=== PATIENT | female | born 1970 | race Caucasian/White ===

== ENCOUNTER 2016-11-05 11:21 | Inpatient (IN) | payer OTHER ==
[2016-11-05 12:13] VITALS: BMI 26.6
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
[2016-11-05] MEDS ORDERED: ACETAMINOPHEN 325 MG TABLET (FP) PO PRN (13:56)
[2016-11-05] MEDS ORDERED: P-EPHED 60MG/TRIPROLIDI 2.5MG TABLET PO PRN (13:56)
[2016-11-05] MEDS ORDERED: LOPERAMIDE HCL 2 MG CAPSULE PO PRN (13:56)
[2016-11-05] MEDS ORDERED: MAGNESIUM CITRATE 300 ML BOTTLE PO PRN (13:56)
[2016-11-05] MEDS ORDERED: MAGNESIUM HYDROX 2400MG/30ML ORAL SUSPENSION 30 ML CUP PO PRN (13:56)
[2016-11-05] MEDS ORDERED: IBUPROFEN 400 MG TABLET (FP) PO PRN (13:56)
[2016-11-05] MEDS ORDERED: MAG HYDROX/AL HYDROX/SIMETH 30 ML UNIT-DOSE CUP PO PRN (13:56)
[2016-11-05] MEDS ORDERED: chlordiazePOXIDE HCL 25 MG CAPSULE PO PRN (13:56)
[2016-11-05] MEDS ORDERED: guaiFENesin/D-METHORPHAN HB 10 ML UNIT-DOSE CUPS PO PRN (13:56)
[2016-11-05] MEDS ORDERED: MENTHOL/PHENOL 1 EACH UD MM PRN (13:56)
[2016-11-05] MEDS ORDERED: hydrOXYzine PAMOATE 50 MG CAPSULE (FP) PO PRN (13:56)
[2016-11-05] MEDS ORDERED: ALBUTEROL SO4 6.7 GM HFA INHALER IH PRN (14:05)
[2016-11-05] MEDS ORDERED: chlordiazePOXIDE HCL 25 MG CAPSULE PO ONE (14:28)
[2016-11-05 16:33] LABS: URINE APPEARANCE SLCLOUDY; URINE BILIRUBIN NEGATIVE (NEGATIVE); URINE BLOOD NEGATIVE (NEGATIVE); URINE COLOR YELLOW; URINE GLUCOSE (UA) NEGATIVE (NEGATIVE); URINE KETONE NEGATIVE (NEGATIVE); URINE NITRITE NEGATIVE (NEGATIVE); URINE PROTEIN NEGATIVE (NEGATIVE); URINE UROBILINOGEN 2.0 E.U/dl E.U./dl (0.2-1.0)
[2016-11-05 16:37] LABS: URINE LEUK ESTERASE TRACE (NEGATIVE)
[2016-11-05 16:40] LABS: URINE BACTERIA RARE /hpf (NONE SEEN); URINE MUCUS RARE; URINE RBC 2 /hpf (0-3); URINE WBC 7 /hpf (3-5)
[2016-11-05] MEDS: chlordiazePOXIDE HCL 25 MG CAPSULE PO SCH ×2 (17:34→22:21)
[2016-11-05] MEDS: ONDANSETRON *ODT* 4 MG TABLET SL PRN ×2 (19:36→22:21)
[2016-11-05] MEDS: THIAMINE HCL 100 MG TABLET (FP) PO SCH (22:21)
[2016-11-05] MEDS: diphenhydrAMINE HCL 50 MG CAPSULE PO PRN (22:21)
[2016-11-06] MEDS: chlordiazePOXIDE HCL 25 MG CAPSULE PO SCH ×4 (06:05→22:25)
[2016-11-06 09:17] LABS: HIV 1 & 2 AB NEGATIVE; HIV 1 AGp24 NEGATIVE
[2016-11-06 10:09] LABS: MCH 31.6 pg (25.7-33.7); MCHC 33.4 g/dl (32.0-36.0); MEAN CELL VOLUME 94.5 fl (80-96); MEAN PLT VOLUME 9.6 fl (7.5-11.1); PLATELET COUNT 283 K/MM3 (134-434); WHITE BLOOD COUNT 9.2 K/mm3 (4.0-10.0)
[2016-11-06 10:28] LABS: ALBUMIN 3.4 g/dl (3.4-5.0); ALK PHOS 90 U/L (45-117); ANION GAP 8 (8-16); BILIRUBIN,TOTAL 0.4 mg/dL (0.2-1.0); CALCIUM 8.7 mg/dL (8.5-10.1); CO2 29 mmol/L (21-32); CREATININE 0.8 mg/dL (0.55-1.02); GLUCOSE,RANDOM 97 mg/dL (74-106); SGOT/AST 23 U/L (15-37); SGPT/ALT 29 U/L (12-78); TOT PROT 6.8 g/dl (6.4-8.2)
[2016-11-06] MEDS: PRENATAL VITAMINS W/ FOLIC ACID TABLET (FP) PO SCH (10:46)
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
--- NOTE | 2016-11-06 12:56 | PN ---
S CIWA - CIWA Score Nausea/Vomitin Muscle Tremors: 2 Anxiety: 2 Agitation: 2 Paroxysmal Sweats: 2 Orientation: 0-Oriented Tacttile Disturbances: 2-Mild Itch/Numbness/Burn Auditory Disturbances: 0-None Visual Disturbances: 0-None Headache: 3-Moderate CIWA-Ar Total Score: 15 S Progress Note (SOAP) Subjective: Generalized weakness, sweats, shakes, irritable nausea and muscle aches Objective: 11/06/16 12:55 Vital Signs - 8 hr 11/06/16 11/06/16 06:00 10:00 Temperature 98.8 F 98.2 F Pulse Rate 86 91 H Respiratory 18 18 Rate Blood Pressure 128/86 132/87 Laboratory Last Values WBC 9.2 K/mm3 (4.0-10.0) 11/06/16 06:20 RBC 3.88 M/mm3 (3.60-5.2) 11/06/16 06:20 Hgb 12.3 GM/dL (10.7-15.3) 11/06/16 06:20 Hct 36.7 % (32.4-45.2) 11/06/16 06:20 MCV 94.5 fl (80-96) 11/06/16 06:20 MCHC 33.4 g/dl (32.0-36.0) 11/06/16 06:20 RDW 15.0 % (11.6-15.6) 11/06/16 06:20 Plt Count 283 K/MM3 (134-434) 11/06/16 06:20 MPV 9.6 fl (7.5-11.1) 11/06/16 06:20 Sodium 141 mmol/L (136-145) 11/06/16 06:20 Potassium 4.3 mmol/L (3.5-5.1) 11/06/16 06:20 Chloride 104 mmol/L (98-107) 11/06/16 06:20 Carbon Dioxide 29 mmol/L (21-32) 11/06/16 06:20 Anion Gap 8 (8-16) 11/06/16 06:20 BUN 14 mg/dL (7-18) 11/06/16 06:20 Creatinine 0.8 mg/dL (0.55-1.02) D 11/06/16 06:20 Creat Clearance w eGFR > 60 (>60) 11/06/16 06:20 Random Glucose 97 mg/dL (74-106) 11/06/16 06:20 Calcium 8.7 mg/dL (8.5-10.1) 11/06/16 06:20 Total Bilirubin 0.4 mg/dL (0.2-1.0) D 11/06/16 06:20 AST 23 U/L (15-37) D 11/06/16 06:20 ALT 29 U/L (12-78) D 11/06/16 06:20 Alkaline Phosphatase 90 U/L (45-117) 11/06/16 06:20 Total Protein 6.8 g/dl (6.4-8.2) 11/06/16 06:20 Albumin 3.4 g/dl (3.4-5.0) 11/06/16 06:20 Urine Color Yellow 11/05/16 15:00 Urine Appearance Slcloudy 11/05/16 15:00 Urine pH 7.0 (5.0-8.0) 11/05/16 15:00 Ur Specific [place] 1.027 (1.001-1.035) 11/05/16 15:00 Urine Protein Negative (NEGATIVE) 11/05/16 15:00 Urine Glucose (UA) Negative (NEGATIVE) 11/05/16 15:00 Urine Ketones Negative (NEGATIVE) 11/05/16 15:00 Urine Blood Negative (NEGATIVE) 11/05/16 15:00 Urine Nitrite Negative (NEGATIVE) 11/05/16 15:00 Urine Bilirubin Negative (NEGATIVE) 11/05/16 15:00 Urine Urobilinogen 2.0 e.u/dl E.U./dl (0.2-1.0) H 11/05/16 15:00 Ur Leukocyte Esterase Trace (NEGATIVE) H 11/05/16 15:00 Urine RBC 2 /hpf (0-3) 11/05/16 15:00 Urine WBC 7 /hpf (3-5) 11/05/16 15:00 Ur Epithelial Cells Moderate /hpf (FEW) 11/05/16 15:00 Urine Bacteria Rare /hpf (NONE SEEN) 11/05/16 15:00 Urine Mucus Rare 11/05/16 15:00 Hepatitis C Antibody 0.1 s/co ratio (0.0-0.9) 11/05/16 14:00 HIV 1&2 Antibody Screen Negative 11/05/16 14:00 HIV P24 Antigen Negative 11/05/16 14:00 Labs noted Assessment: 11/06/16 12:55 withdrawal sx Plan: continue detox
--- NOTE | 2016-11-06 21:06 | EKG ---
Test Reason : Blood Pressure : / mmHG Vent. Rate : 069 BPM Atrial Rate : 069 BPM P-R Int : 134 ms QRS Dur : 086 ms QT Int : 436 ms P-R-T Axes : 062 048 048 degrees QTc Int : 467 ms NORMAL SINUS RHYTHM WITH SINUS ARRHYTHMIA CANNOT RULE OUT ANTERIOR INFARCT , AGE UNDETERMINED ABNORMAL ECG WHEN COMPARED WITH ECG OF 28-JUN-2012 10:34, NO SIGNIFICANT CHANGE WAS FOUND Confirmed by EZEQUIEL RUTHERFORD MD ([id number]) on 11/06/2016 9:06:23 PM Referred By: Confirmed By:EZEQUIEL RUTHERFORD MD
[2016-11-06] MEDS ORDERED: OLANZapine 10 MG TABLET PO SCH (22:00)
[2016-11-06] MEDS ORDERED: MIRTAZAPINE 30 MG TABLET (FP) PO SCH (22:00)
[2016-11-06] MEDS: THIAMINE HCL 100 MG TABLET (FP) PO SCH (22:25)
[2016-11-06] MEDS: diphenhydrAMINE HCL 50 MG CAPSULE PO PRN (22:25)
[2016-11-07] MEDS: chlordiazePOXIDE HCL 25 MG CAPSULE PO SCH ×2 (08:09→10:35)
[2016-11-07] MEDS: PRENATAL VITAMINS W/ FOLIC ACID TABLET (FP) PO SCH (10:34)
--- NOTE | 2016-11-07 12:24 | PN ---
S CIWA - CIWA Score Nausea/Vomitin Muscle Tremors: 3 Anxiety: 4-Mod. Anxious/Guarded Agitation: 4-Moderately Restless Paroxysmal Sweats: No Perspiration Orientation: 0-Oriented Tacttile Disturbances: 0-None Auditory Disturbances: 0-None Visual Disturbances: 0-None Headache: 3-Moderate CIWA-Ar Total Score: 16 S Progress Note (SOAP) Subjective: Restlessness, Interrupted Sleep, Generalized Body Aches, Headache. Irritable Objective: 11/07/16 12:23 Vital Signs Temperature 97.5 F L 11/07/16 10:00 Pulse Rate 85 11/07/16 10:00 Respiratory Rate 16 11/07/16 10:00 Blood Pressure 120/93 11/07/16 10:00 O2 Sat by Pulse Oximetry (%) Laboratory Last Values WBC 9.2 K/mm3 (4.0-10.0) 11/06/16 06:20 RBC 3.88 M/mm3 (3.60-5.2) 11/06/16 06:20 Hgb 12.3 GM/dL (10.7-15.3) 11/06/16 06:20 Hct 36.7 % (32.4-45.2) 11/06/16 06:20 MCV 94.5 fl (80-96) 11/06/16 06:20 MCHC 33.4 g/dl (32.0-36.0) 11/06/16 06:20 RDW 15.0 % (11.6-15.6) 11/06/16 06:20 Plt Count 283 K/MM3 (134-434) 11/06/16 06:20 MPV 9.6 fl (7.5-11.1) 11/06/16 06:20 Sodium 141 mmol/L (136-145) 11/06/16 06:20 Potassium 4.3 mmol/L (3.5-5.1) 11/06/16 06:20 Chloride 104 mmol/L (98-107) 11/06/16 06:20 Carbon Dioxide 29 mmol/L (21-32) 11/06/16 06:20 Anion Gap 8 (8-16) 11/06/16 06:20 BUN 14 mg/dL (7-18) 11/06/16 06:20 Creatinine 0.8 mg/dL (0.55-1.02) D 11/06/16 06:20 Creat Clearance w eGFR > 60 (>60) 11/06/16 06:20 Random Glucose 97 mg/dL (74-106) 11/06/16 06:20 Calcium 8.7 mg/dL (8.5-10.1) 11/06/16 06:20 Total Bilirubin 0.4 mg/dL (0.2-1.0) D 11/06/16 06:20 AST 23 U/L (15-37) D 11/06/16 06:20 ALT 29 U/L (12-78) D 11/06/16 06:20 Alkaline Phosphatase 90 U/L (45-117) 11/06/16 06:20 Total Protein 6.8 g/dl (6.4-8.2) 11/06/16 06:20 Albumin 3.4 g/dl (3.4-5.0) 11/06/16 06:20 Urine Color Yellow 11/05/16 15:00 Urine Appearance Slcloudy 11/05/16 15:00 Urine pH 7.0 (5.0-8.0) 11/05/16 15:00 Ur Specific [place] 1.027 (1.001-1.035) 11/05/16 15:00 Urine Protein Negative (NEGATIVE) 11/05/16 15:00 Urine Glucose (UA) Negative (NEGATIVE) 11/05/16 15:00 Urine Ketones Negative (NEGATIVE) 11/05/16 15:00 Urine Blood Negative (NEGATIVE) 11/05/16 15:00 Urine Nitrite Negative (NEGATIVE) 11/05/16 15:00 Urine Bilirubin Negative (NEGATIVE) 11/05/16 15:00 Urine Urobilinogen 2.0 e.u/dl E.U./dl (0.2-1.0) H 11/05/16 15:00 Ur Leukocyte Esterase Trace (NEGATIVE) H 11/05/16 15:00 Urine RBC 2 /hpf (0-3) 11/05/16 15:00 Urine WBC 7 /hpf (3-5) 11/05/16 15:00 Ur Epithelial Cells Moderate /hpf (FEW) 11/05/16 15:00 Urine Bacteria Rare /hpf (NONE SEEN) 11/05/16 15:00 Urine Mucus Rare 11/05/16 15:00 RPR Titer Nonreactive (NONREACTIVE) 11/06/16 06:20 Hepatitis C Antibody 0.1 s/co ratio (0.0-0.9) 11/05/16 14:00 HIV 1&2 Antibody Screen Negative 11/05/16 14:00 HIV P24 Antigen Negative 11/05/16 14:00 Assessment: Withdrawal Symptoms Plan: Continue Detox
[2016-11-07] MEDS ORDERED: chlordiazePOXIDE 5 MG CAPSULE PO SCH (17:00)
[2016-11-07 18:11] VITALS: BP 112/64; PULSE 71; TEMP 98.2
[2016-11-08] MEDS ORDERED: chlordiazePOXIDE HCL 10 MG CAPSULE PO SCH (17:00)
--- NOTE | 2016-11-20 19:58 | DS ---
[facility] Detox Discharge Summary Admission Date: 11/05/16 Discharge Date: 11/07/16 - History Present History: Alcohol Dependence Pertinent Past History: Asthma Eczema - Physical Exam Results Vital Signs: Vital Signs Temperature 98.2 F 11/07/16 18:10 Pulse Rate 71 11/07/16 18:10 Respiratory Rate 20 11/07/16 18:10 Blood Pressure 112/64 11/07/16 18:10 O2 Sat by Pulse Oximetry (%) Pertinent Admission Physical Exam Findings: Withdrawal sx Laboratory Last Values WBC 9.2 K/mm3 (4.0-10.0) 11/06/16 06:20 RBC 3.88 M/mm3 (3.60-5.2) 11/06/16 06:20 Hgb 12.3 GM/dL (10.7-15.3) 11/06/16 06:20 Hct 36.7 % (32.4-45.2) 11/06/16 06:20 MCV 94.5 fl (80-96) 11/06/16 06:20 MCHC 33.4 g/dl (32.0-36.0) 11/06/16 06:20 RDW 15.0 % (11.6-15.6) 11/06/16 06:20 Plt Count 283 K/MM3 (134-434) 11/06/16 06:20 MPV 9.6 fl (7.5-11.1) 11/06/16 06:20 Sodium 141 mmol/L (136-145) 11/06/16 06:20 Potassium 4.3 mmol/L (3.5-5.1) 11/06/16 06:20 Chloride 104 mmol/L (98-107) 11/06/16 06:20 Carbon Dioxide 29 mmol/L (21-32) 11/06/16 06:20 Anion Gap 8 (8-16) 11/06/16 06:20 BUN 14 mg/dL (7-18) 11/06/16 06:20 Creatinine 0.8 mg/dL (0.55-1.02) D 11/06/16 06:20 Creat Clearance w eGFR > 60 (>60) 11/06/16 06:20 Random Glucose 97 mg/dL (74-106) 11/06/16 06:20 Calcium 8.7 mg/dL (8.5-10.1) 11/06/16 06:20 Total Bilirubin 0.4 mg/dL (0.2-1.0) D 11/06/16 06:20 AST 23 U/L (15-37) D 11/06/16 06:20 ALT 29 U/L (12-78) D 11/06/16 06:20 Alkaline Phosphatase 90 U/L (45-117) 11/06/16 06:20 Total Protein 6.8 g/dl (6.4-8.2) 11/06/16 06:20 Albumin 3.4 g/dl (3.4-5.0) 11/06/16 06:20 Urine Color Yellow 11/05/16 15:00 Urine Appearance Slcloudy 11/05/16 15:00 Urine pH 7.0 (5.0-8.0) 11/05/16 15:00 Ur Specific [place] 1.027 (1.001-1.035) 11/05/16 15:00 Urine Protein Negative (NEGATIVE) 11/05/16 15:00 Urine Glucose (UA) Negative (NEGATIVE) 11/05/16 15:00 Urine Ketones Negative (NEGATIVE) 11/05/16 15:00 Urine Blood Negative (NEGATIVE) 11/05/16 15:00 Urine Nitrite Negative (NEGATIVE) 11/05/16 15:00 Urine Bilirubin Negative (NEGATIVE) 11/05/16 15:00 Urine Urobilinogen 2.0 e.u/dl E.U./dl (0.2-1.0) H 11/05/16 15:00 Ur Leukocyte Esterase Trace (NEGATIVE) H 11/05/16 15:00 Urine RBC 2 /hpf (0-3) 11/05/16 15:00 Urine WBC 7 /hpf (3-5) 11/05/16 15:00 Ur Epithelial Cells Moderate /hpf (FEW) 11/05/16 15:00 Urine Bacteria Rare /hpf (NONE SEEN) 11/05/16 15:00 Urine Mucus Rare 11/05/16 15:00 RPR Titer Nonreactive (NONREACTIVE) 11/06/16 06:20 Hepatitis C Antibody 0.1 s/co ratio (0.0-0.9) 11/05/16 14:00 HIV 1&2 Antibody Screen Negative 11/05/16 14:00 HIV P24 Antigen Negative 11/05/16 14:00 labs noted - Treatment Patient has Accepted a Rehab Referral to: [facility] in the [facility]. - Medication Discharge Medications: Ambulatory Orders Albuterol Sulfate Inhaler - [Ventolin HFA Inhaler -] 2 puff IH Q4H PRN 11/05/16 Mirtazapine [Remeron -] 45 mg PO HS 11/05/16 Olanzapine [Zyprexa -] 10 mg PO HS 11/05/16 Mirtazapine [Remeron -] 30 mg PO HS #30 tablet 11/06/16 Olanzapine [Zyprexa -] 10 mg PO DAILY #30 tablet 11/06/16 - AMA Did Patient Leave Against Medical Advice: Yes
== END 2016-11-07 20:25 | disposition left against medical advice (07) | DRG 770 ==
LOC: YASAS 11:21 → Y6N 14:19
PROVIDERS: ADMIT Internal Medicine; ATTEND Internal Medicine
PROC: HZ2ZZZZ Detoxification Services for Substance Abuse Treatment (ICD-10-PCS; principal; 2016-11-07)
DX: F10.230 Alcohol dependence with withdrawal, uncomplicated (principal); F14.20 Cocaine dependence, uncomplicated; F12.20 Cannabis dependence, uncomplicated; F17.210 Nicotine dependence, cigarettes, uncomplicated; F19.24 Other psychoactive substance dependence with psychoactive substance-induced mood disorder; F31.89 Other bipolar disorder; F43.10 Post-traumatic stress disorder, unspecified; D64.9 Anemia, unspecified; Z86.74 Personal history of sudden cardiac arrest
CPT/HCPCS: 36415; 80053; 81003; 81015; 85027; 86593; 87389; 93005; 93010

== ENCOUNTER 2021-04-14 16:33 | Inpatient (IN) | payer OTHER ==
[2021-04-14 17:36] VITALS: BMI 28.9
[2021-04-14] MEDS ORDERED: NICOTINE 10 MG CARTRIDGE (INHALER) IH PRN (19:57)
[2021-04-14] MEDS ORDERED: LOPERAMIDE HCL 2 MG CAPSULE PO PRN (19:57)
[2021-04-14] MEDS ORDERED: P-EPHED 60MG/TRIPROLIDI 2.5MG TABLET PO PRN (19:57)
[2021-04-14] MEDS ORDERED: guaiFENesin 200 MG/10 ML 10 ML UNIT-DOSE CUPS PO PRN (19:57)
[2021-04-14] MEDS ORDERED: ACETAMINOPHEN 325 MG TABLET (FP) PO PRN (19:57)
[2021-04-14] MEDS ORDERED: ALBUTEROL SO4 HFA INHALER IH ONE (21:09)
[2021-04-14] MEDS: ALBUTEROL SO4 HFA INHALER IH PRN (21:11)
[2021-04-14] MEDS: PRENATAL VITAMINS W/ FOLIC ACID TABLET (FP) PO SCH (23:02)
[2021-04-14] MEDS: hydrOXYzine PAMOATE 25 MG CAPSULE (FP) PO SCH (23:02)
[2021-04-14] MEDS: MELATONIN 5 MG TABLETS PO SCH (23:03)
[2021-04-14] MEDS: THIAMINE HCL 100 MG TABLET (FP) PO SCH (23:06)
[2021-04-14] MEDS: DOXYCYCLINE HYCLATE 100 MG CAPSULE PO SCH (23:06)
[2021-04-15] MEDS ORDERED: TUBERCULIN PPD 5 TU/0.1ML VIAL ID ONE (00:27)
[2021-04-15] MEDS: hydrOXYzine PAMOATE 25 MG CAPSULE (FP) PO SCH ×3 (06:41→15:13)
[2021-04-15 10:07] LABS: HEMATOCRIT 40.8 % (32.4-45.2); HEMOGLOBIN 13.9 GM/dL (10.7-15.3); MCH 34.3 pg (25.7-33.7); MCHC 34.1 g/dl (32.0-36.0); MEAN CELL VOLUME 100.4 fl (80-96); MEAN PLT VOLUME 9.3 fl (7.5-11.1); PLATELET COUNT 319 10^3/uL (134-434); RBC 4.06 M/mm3 (3.60-5.2); RDW 13.1 % (11.6-15.6); WHITE BLOOD COUNT 8.1 K/mm3 (4.0-10.0)
[2021-04-15 10:16] LABS: ALBUMIN 3.1 g/dl (3.4-5.0); BLOOD UREA NITROGEN 8.1 mg/dL (7-18); CALCIUM 8.9 mg/dL (8.5-10.1)
[2021-04-15 10:20] LABS: CREATININE 0.8 mg/dL (0.55-1.3)
[2021-04-15 10:21] LABS: BILIRUBIN,TOTAL 0.6 mg/dL (0.2-1)
[2021-04-15 10:22] LABS: TOT PROT 7.4 g/dl (6.4-8.2)
[2021-04-15] MEDS: PRENATAL VITAMINS W/ FOLIC ACID TABLET (FP) PO SCH (10:39)
[2021-04-15] MEDS: DOXYCYCLINE HYCLATE 100 MG CAPSULE PO SCH ×2 (10:40→19:12)
[2021-04-15] MEDS: IBUPROFEN 400 MG TABLET (FP) PO PRN (11:40)
[2021-04-15] MEDS ORDERED: hydrOXYzine PAMOATE 25 MG CAPSULE (FP) PO PRN (14:28)
[2021-04-15] MEDS ORDERED: PT OWN MED DRAWER 7, Y5N ONE (16:34)
[2021-04-15 19:40] LABS: PH,URINE >= 9.0 (5.0-8.0); URINE APPEARANCE CLOUDY; URINE BILIRUBIN NEGATIVE (NEGATIVE); URINE COLOR YELLOW; URINE GLUCOSE (UA) NEGATIVE (NEGATIVE); URINE KETONE TRACE (NEGATIVE); URINE LEUK ESTERASE NEGATIVE (NEGATIVE); URINE NITRITE NEGATIVE (NEGATIVE); URINE PROTEIN TRACE (NEGATIVE)
[2021-04-15] MEDS: MIRTAZAPINE 15 MG TABLET (FP) PO SCH (21:19)
[2021-04-15] MEDS: THIAMINE HCL 100 MG TABLET (FP) PO SCH (21:19)
[2021-04-15] MEDS: MELATONIN 5 MG TABLETS PO SCH (21:19)
[2021-04-16] MEDS: DOXYCYCLINE HYCLATE 100 MG CAPSULE PO SCH ×2 (10:39→18:43)
[2021-04-16] MEDS: PRENATAL VITAMINS W/ FOLIC ACID TABLET (FP) PO SCH (10:39)
[2021-04-16] MEDS: ALBUTEROL SO4 HFA INHALER IH PRN (15:28)
[2021-04-16] MEDS: MELATONIN 5 MG TABLETS PO SCH (21:11)
[2021-04-16] MEDS: THIAMINE HCL 100 MG TABLET (FP) PO SCH (21:11)
[2021-04-16] MEDS: MIRTAZAPINE 15 MG TABLET (FP) PO SCH (21:11)
[2021-04-17] MEDS: ALBUTEROL SO4 HFA INHALER IH PRN ×2 (02:43→19:48)
[2021-04-17] MEDS: PRENATAL VITAMINS W/ FOLIC ACID TABLET (FP) PO SCH (10:10)
[2021-04-17] MEDS: DOXYCYCLINE HYCLATE 100 MG CAPSULE PO SCH ×2 (10:10→17:06)
[2021-04-17] MEDS ORDERED: PT OWN MED DRAWER 7, Y5N ONE ×2 (16:53→18:41)
[2021-04-17] MEDS: BICTEGRAV/EMTRICIT/TENOFOV (BIKTARVY) 50-200-25 MG TABLET PO SCH (17:06)
[2021-04-17] MEDS: MELATONIN 5 MG TABLETS PO SCH (21:22)
[2021-04-17] MEDS: MIRTAZAPINE 15 MG TABLET (FP) PO SCH (21:22)
[2021-04-17] MEDS: THIAMINE HCL 100 MG TABLET (FP) PO SCH (21:22)
[2021-04-18] MEDS: DOXYCYCLINE HYCLATE 100 MG CAPSULE PO SCH ×2 (10:19→17:27)
[2021-04-18] MEDS: BICTEGRAV/EMTRICIT/TENOFOV (BIKTARVY) 50-200-25 MG TABLET PO SCH (10:19)
[2021-04-18] MEDS: PRENATAL VITAMINS W/ FOLIC ACID TABLET (FP) PO SCH (10:19)
[2021-04-18] MEDS: ALBUTEROL SO4 HFA INHALER IH PRN (16:08)
[2021-04-18] MEDS: MELATONIN 5 MG TABLETS PO SCH (21:26)
[2021-04-18] MEDS: MIRTAZAPINE 15 MG TABLET (FP) PO SCH (21:26)
[2021-04-18] MEDS: THIAMINE HCL 100 MG TABLET (FP) PO SCH (21:27)
[2021-04-18] MEDS: IBUPROFEN 400 MG TABLET (FP) PO PRN (22:57)
[2021-04-19] MEDS: BICTEGRAV/EMTRICIT/TENOFOV (BIKTARVY) 50-200-25 MG TABLET PO SCH (09:13)
[2021-04-19] MEDS: DOXYCYCLINE HYCLATE 100 MG CAPSULE PO SCH ×2 (09:13→18:58)
[2021-04-19] MEDS: PRENATAL VITAMINS W/ FOLIC ACID TABLET (FP) PO SCH (09:13)
[2021-04-19] MEDS: MIRTAZAPINE 15 MG TABLET (FP) PO SCH (21:12)
[2021-04-19] MEDS: MELATONIN 5 MG TABLETS PO SCH (21:12)
[2021-04-19] MEDS: THIAMINE HCL 100 MG TABLET (FP) PO SCH (21:13)
[2021-04-19] MEDS: IBUPROFEN 400 MG TABLET (FP) PO PRN (21:44)
[2021-04-20] MEDS: DOXYCYCLINE HYCLATE 100 MG CAPSULE PO SCH ×2 (09:18→18:00)
[2021-04-20] MEDS: BICTEGRAV/EMTRICIT/TENOFOV (BIKTARVY) 50-200-25 MG TABLET PO SCH (09:19)
[2021-04-20] MEDS ORDERED: PT OWN MED DRAWER 7, Y5N ONE ×2 (09:20→22:16)
[2021-04-20] MEDS: PRENATAL VITAMINS W/ FOLIC ACID TABLET (FP) PO SCH (09:21)
[2021-04-20] MEDS: MULTIVITAMINS (DAILY MVI) TABLET (FP) PO SCH (10:13)
[2021-04-20] MEDS: IBUPROFEN 400 MG TABLET (FP) PO PRN (18:50)
[2021-04-20] MEDS: THIAMINE HCL 100 MG TABLET (FP) PO SCH (21:47)
[2021-04-20] MEDS: MELATONIN 5 MG TABLETS PO SCH (21:48)
[2021-04-20] MEDS: MIRTAZAPINE 15 MG TABLET (FP) PO SCH (21:49)
[2021-04-21] MEDS: MULTIVITAMINS (DAILY MVI) TABLET (FP) PO SCH (09:54)
[2021-04-21] MEDS: BICTEGRAV/EMTRICIT/TENOFOV (BIKTARVY) 50-200-25 MG TABLET PO SCH (09:54)
[2021-04-21] MEDS: DOXYCYCLINE HYCLATE 100 MG CAPSULE PO SCH ×2 (10:43→18:52)
[2021-04-21] MEDS ORDERED: PT OWN MED DRAWER 7, Y5N ONE ×2 (10:46→17:16)
[2021-04-21] MEDS: MELATONIN 5 MG TABLETS PO SCH (21:16)
[2021-04-21] MEDS: MIRTAZAPINE 15 MG TABLET (FP) PO SCH (21:16)
[2021-04-21] MEDS: THIAMINE HCL 100 MG TABLET (FP) PO SCH (21:17)
[2021-04-22] MEDS ORDERED: PT OWN MED DRAWER 7, Y5N ONE ×3 (09:26→17:43)
[2021-04-22] MEDS: MULTIVITAMINS (DAILY MVI) TABLET (FP) PO SCH (10:20)
[2021-04-22] MEDS: BICTEGRAV/EMTRICIT/TENOFOV (BIKTARVY) 50-200-25 MG TABLET PO SCH (10:21)
[2021-04-22] MEDS: ALBUTEROL SO4 HFA INHALER IH PRN (10:21)
[2021-04-22] MEDS: DOXYCYCLINE HYCLATE 100 MG CAPSULE PO SCH ×2 (10:21→17:43)
[2021-04-22] MEDS ORDERED: BACITRACIN 0.9 GM PACKET TP ONE (11:36)
[2021-04-22] MEDS: IBUPROFEN 400 MG TABLET (FP) PO PRN (12:58)
[2021-04-22] MEDS: THIAMINE HCL 100 MG TABLET (FP) PO SCH (21:36)
[2021-04-22] MEDS: MELATONIN 5 MG TABLETS PO SCH (21:36)
[2021-04-22] MEDS: MIRTAZAPINE 15 MG TABLET (FP) PO SCH (21:36)
[2021-04-23 06:48] VITALS: BP 150/93; PULSE 70; TEMP 97.3
[2021-04-23] MEDS ORDERED: PT OWN MED DRAWER 7, Y5N ONE (09:28)
[2021-04-23] MEDS: DOXYCYCLINE HYCLATE 100 MG CAPSULE PO SCH (09:28)
[2021-04-23] MEDS: BICTEGRAV/EMTRICIT/TENOFOV (BIKTARVY) 50-200-25 MG TABLET PO SCH (09:28)
[2021-04-23] MEDS: MULTIVITAMINS (DAILY MVI) TABLET (FP) PO SCH (09:28)
== END 2021-04-23 10:48 | disposition home or self-care (01) | DRG 772 ==
LOC: YASAS 16:33 → Y3W 23:07
PROVIDERS: ADMIT Allergy & Immunology; ATTEND Allergy & Immunology
PROC: HZ42ZZZ Group Counseling for Substance Abuse Treatment, Cognitive-Behavioral (ICD-10-PCS; principal; 2021-04-14)
DX: F10.20 Alcohol dependence, uncomplicated (principal); F14.20 Cocaine dependence, uncomplicated; F12.20 Cannabis dependence, uncomplicated; F16.10 Hallucinogen abuse, uncomplicated; F17.210 Nicotine dependence, cigarettes, uncomplicated; F19.24 Other psychoactive substance dependence with psychoactive substance-induced mood disorder; F19.282 Other psychoactive substance dependence with psychoactive substance-induced sleep disorder; F31.9 Bipolar disorder, unspecified; F43.10 Post-traumatic stress disorder, unspecified; Z21 Asymptomatic human immunodeficiency virus [HIV] infection status; J45.909 Unspecified asthma, uncomplicated; I25.2 Old myocardial infarction; S40.811A Abrasion of right upper arm, initial encounter; Y04.0XXA Assault by unarmed brawl or fight, initial encounter; Y93.9 Activity, unspecified; Y92.239 Unspecified place in hospital as the place of occurrence of the external cause; Z88.0 Allergy status to penicillin; Z86.74 Personal history of sudden cardiac arrest; Z87.820 Personal history of traumatic brain injury; Z56.0 Unemployment, unspecified
CPT/HCPCS: 36415; 71046-TC-FY; 80053; 81003; 81025; 85027; 86780; C9803; U0003; U0005

== ENCOUNTER 2023-05-16 13:56 | Inpatient (IN) | payer OTHER ==
[2023-05-16 15:38] VITALS: BMI 21.2
[2023-05-16] MEDS ORDERED: ACETAMINOPHEN 325 MG TABLET (FP) PO PRN (17:45)
[2023-05-16] MEDS ORDERED: guaiFENesin 600 MG TABLET.ER (FP) PO PRN (17:45)
[2023-05-16] MEDS ORDERED: BENZONATATE 200 MG CAPSULE PO PRN (17:45)
[2023-05-16] MEDS ORDERED: NICOTINE POLACRILEX 2 MG GUM BUC PRN (17:45)
[2023-05-16] MEDS ORDERED: LOPERAMIDE HCL 2 MG CAPSULE PO PRN (17:45)
[2023-05-16] MEDS ORDERED: IBUPROFEN 400 MG TABLET (FP) PO PRN (17:45)
[2023-05-16] MEDS ORDERED: P-EPHED 60MG/TRIPROLIDI 2.5MG TABLET PO PRN (17:45)
[2023-05-16] MEDS ORDERED: ONDANSETRON *ODT* 4 MG TABLET SL PRN (17:45)
[2023-05-16] MEDS ORDERED: BISMUTH SUBSALICYLATE 524 MG/30 ML PO PRN (17:45)
[2023-05-16] MEDS ORDERED: DICYCLOMINE HCL 10 MG CAPSULE PO PRN (17:45)
[2023-05-16] MEDS ORDERED: BENZOCAINE/MENTHOL (CHLORASEPTIC ) LOZENGE MM PRN (17:45)
[2023-05-16] MEDS ORDERED: MAG HYDROX/AL HYDROX/SIMETH 30 ML UNIT-DOSE CUP PO PRN (17:45)
[2023-05-16] MEDS ORDERED: POLYETHYLENE GLYCOL (HEALTHYLAX) 3350 17 GM PACKET PO PRN (17:45)
[2023-05-16] MEDS ORDERED: MAGNESIUM HYDROX 2400MG/30ML ORAL SUSPENSION 30 ML CUP PO PRN (17:45)
[2023-05-16] MEDS ORDERED: diazePAM 5 MG TABLET PO PRN (17:48)
[2023-05-16] MEDS ORDERED: diazePAM 5 MG TABLET PO ONE (18:00)
[2023-05-16] MEDS ORDERED: diazePAM 5 MG TABLET ONE (18:15)
[2023-05-16] MEDS ORDERED: MELATONIN 5 MG TABLETS PO SCH (22:00)
[2023-05-16] MEDS ORDERED: BACITRACIN ZINC 15 GM TUBE TOPICAL OINTMENT TP SCH (22:00)
[2023-05-16] MEDS: THIAMINE HCL 100 MG TABLET (FP) PO SCH (22:33)
[2023-05-16] MEDS: BACITRACIN 0.9 GM PACKET TP SCH (22:33)
[2023-05-16] MEDS: diazePAM 5 MG TABLET PO SCH (22:34)
[2023-05-17] MEDS: diazePAM 5 MG TABLET PO SCH ×4 (05:30→22:10)
[2023-05-17] MEDS: IBUPROFEN 600 MG TABLET (FP) PO PRN ×2 (05:31→20:22)
[2023-05-17] MEDS ORDERED: ALBUTEROL SO4 HFA INHALER IH PRN (09:58)
[2023-05-17] MEDS: METHOCARBAMOL 500 MG TABLET PO PRN (10:23)
[2023-05-17] MEDS: hydrOXYzine PAMOATE 25 MG CAPSULE (FP) PO PRN (10:23)
[2023-05-17] MEDS: PRENATAL VITAMINS W/ FOLIC ACID TABLET (FP) PO SCH (10:23)
[2023-05-17] MEDS: BACITRACIN 0.9 GM PACKET TP SCH ×2 (10:23→22:11)
[2023-05-17 10:33] LABS: HEMATOCRIT 38.5 % (32.4-45.2); HEMOGLOBIN 12.6 GM/dL (10.7-15.3); MCH 31.7 pg (25.7-33.7); MCHC 32.7 g/dl (32.0-36.0); MEAN PLT VOLUME 9.1 fl (7.5-11.1); PLATELET COUNT 319 10^3/uL (134-434); RBC 3.97 M/mm3 (3.60-5.2); RDW 13.5 % (11.6-15.6); WHITE BLOOD COUNT 8.1 K/mm3 (4.0-10.0)
[2023-05-17 10:41] LABS: ALBUMIN 2.6 g/dl (3.4-5.0); CALCIUM 8.7 mg/dL (8.5-10.1)
[2023-05-17 10:42] LABS: BLOOD UREA NITROGEN 18.5 mg/dL (7-18)
[2023-05-17 10:44] LABS: CREATININE 0.7 mg/dL (0.55-1.3)
[2023-05-17 10:46] LABS: BILIRUBIN,TOTAL 0.4 mg/dL (0.2-1); TOT PROT 7.3 g/dl (6.4-8.2)
[2023-05-17] MEDS: BICTEGRAV/EMTRICIT/TENOFOV (BIKTARVY) 50-200-25 MG TABLET PO SCH (11:05)
[2023-05-17] MEDS: MIRTAZAPINE 15 MG TABLET (FP) PO SCH (22:10)
[2023-05-17] MEDS: THIAMINE HCL 100 MG TABLET (FP) PO SCH (22:10)
[2023-05-18] MEDS: BICTEGRAV/EMTRICIT/TENOFOV (BIKTARVY) 50-200-25 MG TABLET PO SCH (05:33)
[2023-05-18] MEDS: diazePAM 5 MG TABLET PO SCH ×3 (05:33→22:10)
[2023-05-18] MEDS: METHOCARBAMOL 500 MG TABLET PO PRN ×2 (05:35→17:27)
[2023-05-18] MEDS: hydrOXYzine PAMOATE 25 MG CAPSULE (FP) PO PRN ×2 (10:33→17:27)
[2023-05-18] MEDS: BACITRACIN 0.9 GM PACKET TP SCH ×2 (10:33→22:11)
[2023-05-18] MEDS: PRENATAL VITAMINS W/ FOLIC ACID TABLET (FP) PO SCH (10:33)
[2023-05-18] MEDS: amLODIPine BESYLATE 10 MG TABLET (FP) PO SCH (10:37)
[2023-05-18] MEDS ORDERED: DOXYCYCLINE HYCLATE 100 MG TABLET PO ONE (11:15)
[2023-05-18] MEDS: IBUPROFEN 600 MG TABLET (FP) PO PRN (13:47)
[2023-05-18] MEDS: DOXYCYCLINE HYCLATE 100 MG TABLET PO SCH (17:32)
[2023-05-18] MEDS: THIAMINE HCL 100 MG TABLET (FP) PO SCH (22:10)
[2023-05-18] MEDS: MIRTAZAPINE 15 MG TABLET (FP) PO SCH (22:10)
[2023-05-19] MEDS: diazePAM 5 MG TABLET PO SCH ×2 (06:09→17:12)
[2023-05-19] MEDS: BICTEGRAV/EMTRICIT/TENOFOV (BIKTARVY) 50-200-25 MG TABLET PO SCH (06:09)
[2023-05-19] MEDS: PRENATAL VITAMINS W/ FOLIC ACID TABLET (FP) PO SCH (10:44)
[2023-05-19] MEDS: amLODIPine BESYLATE 10 MG TABLET (FP) PO SCH (10:44)
[2023-05-19] MEDS: BACITRACIN 0.9 GM PACKET TP SCH ×2 (10:44→22:39)
[2023-05-19] MEDS: DOXYCYCLINE HYCLATE 100 MG TABLET PO SCH ×2 (10:44→17:10)
[2023-05-19] MEDS: MIRTAZAPINE 15 MG TABLET (FP) PO SCH (22:40)
[2023-05-19] MEDS: THIAMINE HCL 100 MG TABLET (FP) PO SCH (22:40)
[2023-05-19] MEDS: METHOCARBAMOL 500 MG TABLET PO PRN (22:40)
[2023-05-19] MEDS: hydrOXYzine PAMOATE 25 MG CAPSULE (FP) PO PRN (22:40)
[2023-05-20] MEDS ORDERED: diazePAM 5 MG TABLET PO ONE (06:00)
[2023-05-20] MEDS: BICTEGRAV/EMTRICIT/TENOFOV (BIKTARVY) 50-200-25 MG TABLET PO SCH (06:08)
[2023-05-20 09:19] VITALS: BP 124/76; PULSE 71; RESP 16; TEMP 97.3
[2023-05-20] MEDS: amLODIPine BESYLATE 10 MG TABLET (FP) PO SCH (09:30)
[2023-05-20] MEDS: BACITRACIN 0.9 GM PACKET TP SCH (09:30)
[2023-05-20] MEDS: PRENATAL VITAMINS W/ FOLIC ACID TABLET (FP) PO SCH (09:31)
[2023-05-20] MEDS: DOXYCYCLINE HYCLATE 100 MG TABLET PO SCH (09:31)
== END 2023-05-20 09:25 | disposition home or self-care (01) | DRG 774 ==
LOC: YASAS 13:56 → Y6N 18:46
PROVIDERS: ADMIT Allergy & Immunology; ATTEND Surgery
PROC: HZ2ZZZZ Detoxification Services for Substance Abuse Treatment (ICD-10-PCS; principal; 2023-05-16)
DX: F10.230 Alcohol dependence with withdrawal, uncomplicated (principal); F14.20 Cocaine dependence, uncomplicated; F12.20 Cannabis dependence, uncomplicated; F41.9 Anxiety disorder, unspecified; F32.A Depression, unspecified; Z21 Asymptomatic human immunodeficiency virus [HIV] infection status; R76.8 Other specified abnormal immunological findings in serum; Z20.822 Contact with and (suspected) exposure to COVID-19; I25.2 Old myocardial infarction; Z86.74 Personal history of sudden cardiac arrest; Z87.891 Personal history of nicotine dependence; Z87.820 Personal history of traumatic brain injury; Z88.0 Allergy status to penicillin
CPT/HCPCS: 36415; 80053; 85027; 86593; 86780; 87635; 87811; 93005; 93010; Q0162